=== PATIENT | female | born 1980 | race Caucasian/White ===

== ENCOUNTER 2021-09-30 11:42 | Emergency (ER) | payer OTHER ==
[~2021-09-30] VITALS: Ht 170.2 cm; Wt 66.5 kg
[2021-09-30] MEDS ORDERED: IOHEXOL 300 MG/ML 75 ML VIAL. IV ONE (12:30)
[2021-09-30] MEDS ORDERED: ONDANSETRON PF 4 MG/2 ML VIAL. IVP ONE (12:30)
--- NOTE | 2021-09-30 12:33 | PHYS DOC ---
Past History Past Surgical History: , Other Additional Past Surgical Histo: hand surgery Alcohol Use: Sober Additional Alcohol Information: heavy drinker until last months; states she was drinking glasses of wine nightly until then Social History Narrative: is using CBD oil General Adult EDM: Chief Complaint: ABDOMINAL PAIN HPI: HPI: Patient is a 41-year-old female coming in for left sided abdominal pain that started radiating to the left flank. Says the pain is dull and achy but occasionally sharp. No change with movement or positioning. Patient states it has been going on for about 8 months. Has been seen by her primary care and by GI, Propagated a colonoscopy a few months ago that was normal. She has a follow-up appointment in 1 month for further evaluation. Patient denies any hematuria, dysuria, vaginal bleeding or discharge. States that today he started having some nausea, but denies vomiting. Last p.o. intake about 4 hours prior to evaluation. Patient states that she has a history of constipation and takes probiotics and stool softeners and has been having normal bowel movement without straining. Patient moved to [place] from [place] about 6 months ago. Has a past medical history of bipolar disorder but does not take medications for it. History of 2 C-sections. No known food allergies. No significant family history. Review of Systems: Review of Systems: All other systems within normal limits except for as noted in the HPI Allergies: Allergies: Allergies Coded Allergies Type Severity Reaction Last Updated Verified No Known Drug Allergies 09/30/21 No Physical Exam: PE: Constitutional: Well developed, well nourished, no acute distress, non-toxic ap pearance. [] HENT: Normocephalic, atraumatic, bilateral external ears normal, nose normal. [] Eyes: PERRLA, conjunctiva normal, no discharge. [] Neck: No rigidity, supple, no stridor. [] Cardiovascular: Regular rate and rhythm, brisk cap refill [] Lungs & Thorax: Non labored symmetric respirations, no tachypnea or respiratory distress [] Abdomen: Soft, nondistended, left lower quadrant tender. Skin: Warm, dry, no erythema, no rash. [] Back: Unremarkable, no step-off or deformity Extremities: No deformities, range of motion grossly intact, no lower extremity edema [] Neurologic: Alert and oriented X 3, no focal deficits noted. [] Psychologic: Affect normal, judgement normal, mood normal. [] Current Patient Data: Labs: Laboratory Tests Test 09/30/21 12:20 POC Urine HCG, Qualitative hcg negative (Negative) Vital Signs: Vital Signs Date Time Temp Pulse Resp B/P (MAP) Pulse Ox O2 Delivery O2 Flow Rate FiO2 09/30/21 11:52 98.2 71 18 115/58 (77) 100 Room Air EKG: EKG: [] Radiology/Procedures: Radiology/Procedures: [address] [address] IMAGING REPORT Signed PATIENT: KUSH SALAZAR ACCOUNT: [id number] : 1980 LOCATION: ER AGE: 41 SEX: F EXAM STATUS: REG ER ORD. PHYSICIAN: BETH TORO MD REASON: Left flank pain PROCEDURE: CT ABD PELV W/ IV CONTRST ONLY CT abdomen pelvis with contrast dated 09/30/2021. COMPARISON: None. INDICATION: Left flank pain. TECHNIQUE: Contiguous axial imaging the M pelvis performed following the intravenous administration of 75 cc Isovue-370. One or more of the following individualized dose reduction techniques were utilized for this examination: 1. Automated exposure control 2. Adjustment of the mA and/or kV according to patient size 3. Use of iterative reconstruction technique FINDINGS: Limited images of lung bases are clear. Heart size within normal limits. No pleural or pericardial effusion. There are circumscribed low-density foci in the liver, most consistent with cysts. No biliary ductal dilatation. Portal vein is patent. Spleen, gallbladder, pancreas, adrenal glands and kidneys are unremarkable. No hydronephrosis. Unopacified GI tract is normal in caliber and contour. No bowel wall thickening. No inflammatory stranding in the mesentery. No ascites or lymphadenopathy. The appendix is normal in caliber. Abdominal aorta normal in caliber. No free air. Images of pelvis show nondistended urinary bladder. Uterus unremarkable. There is a 2.2 cm cystic focus at the left ovary with small amount of free pelvic fluid. No inguinal or iliac chain lymphadenopathy. Bone windows show no acute findings. IMPRESSION: 1. No acute abnormality of abdomen or pelvis. 2. Small amount of free pelvic fluid, nonspecific. 3. Small cystic focus at the left ovary, corpus luteum cyst versus dominant follicle. Electronically signed by: Billy Muhammad MD (09/30/2021 1:34 PM) [facility] [place]ATED AND SIGNED BY: BILLY MUHAMMAD MD DATE: 09/30/21 1330 CC: BETH TORO MD; PCP,UNKNOWN ~MTH0 0 [] Heart Score: C/O Chest Pain: No Risk Factors: Risk Factors: DM, Current or recent (<one month) smoker, HTN, HLP, family history of CAD, obesity. Risk Scores: Score 0 - 3: 2.5% MACE over next 6 weeks - Discharge Home Score 4 - 6: 20.3% MACE over next 6 weeks - Admit for Clinical Observation Score 7 - 10: 72.7% MACE over next 6 weeks - Early Invasive Strategies Course & Med Decision Making: Course & Med Decision Making Pertinent Labs and Imaging studies reviewed. (See chart for details) Patient has no acute findings on CT or and labs. Chest there is a moderate amount of stool in the colon. Patient states that she had felt much better when she did the bowel prep prior to her colonoscopy. Discussed patient may need citrate MiraLAX and following her bowel prep instructions. [] Dragon Disclaimer: Dragon Disclaimer: This electronic medical record was generated, in whole or in part, using a voice recognition dictation system. Departure Departure: Impression: Primary Impression: Left flank pain Disposition: HOME / SELF CARE / HOMELESS Condition: STABLE Referrals: ELOY HIGGINS MD Patient Instructions: Bowel Prep Scripts Ibuprofen (IBUPROFEN) 600 Mg Tablet 600 MG PO PRN Q6-8HRS PRN for PAIN, #30 TAB Prov: BETH TORO MD 09/30/21 BETH TORO MD Sep 30, 2021 12:33
[2021-09-30 12:47] LABS: BACTERIA,URINE 0 /HPF (0-FEW); CLARITY,URINE CLEAR; COLOR,URINE YELLOW; GLUCOSE,URINE NEG (NEG); NITRITE,URINE NEG (NEG); RBC,URINE 0 /HPF (0-2); SQUAMOUS EPITHELIAL CELL,UR OCC /LPF; UROBILINOGEN,URINE 0.2 mg/dL (0.2 mg/dL); WBC,URINE 0 /HPF (0-4)
[2021-09-30 13:10] LABS: BASO % 1 % (0-3); EOS # 0.1 x10^3/uL (0.0-0.7); EOS % 2 % (0-3); HEMATOCRIT 41.7 % (36.0-47.0); LYMPH # 1.4 x10^3/uL (1.0-4.8); LYMPH % 23 % (24-48); MEAN CORPUSCULAR HEMOGLOBIN 30 pg (25-35); MEAN CORPUSCULAR HGB CONC 34 g/dL (31-37); MEAN CORPUSCULAR VOLUME 89 fL (79-100); MONO # 0.4 x10^3/uL (0.0-1.1); MONO % 6 % (0-9); NEUT # 4.3 x10^3uL (1.8-7.7); NEUT % 69 % (31-73); PLATELET COUNT 205 x10^3/uL (140-400); RED BLOOD COUNT 4.71 x10^6/uL (3.50-5.40); RED CELL DISTRIBUTION WIDTH 12.4 % (11.5-14.5); WHITE BLOOD COUNT 6.3 x10^3/uL (4.0-11.0)
[2021-09-30 13:19] LABS: CALCIUM 8.6 mg/dL (8.5-10.1); CREATININE 0.7 mg/dL (0.6-1.0); GFR 93.2
[2021-09-30 13:24] LABS: ALBUMIN 3.7 g/dL (3.4-5.0); ALBUMIN/GLOBULIN RATIO 1.1 (1.0-1.7); TOTAL BILIRUBIN 0.2 mg/dL (0.2-1.0); TOTAL PROTEIN 7.1 g/dL (6.4-8.2)
--- NOTE | 2021-09-30 13:36 | RAD ---
CT abdomen pelvis with contrast dated 09/30/2021. COMPARISON: None. INDICATION: Left flank pain. TECHNIQUE: Contiguous axial imaging the M pelvis performed following the intravenous administration of 75 cc Iso alyson-370. One or more of the following individualized dose reduction techniques were utilized for this examinat ion: 1. Automated exposure control 2. Adjustment of the mA and/or kV according to patient size 3. Use of iterative reconstruction technique FINDINGS: Limited images of lung bases are clear. Heart size within normal limits. No pleural or pericardial ef fusion. There are circumscribed low-density foci in the liver, most consistent with cysts. No biliary ductal dilatation. Portal vein is patent. Spleen, gallbladder, pancreas, adrenal glands and kidneys are unre markable. No hydronephrosis. Unopacified GI tract is normal in caliber and contour. No bowel wall thickening. No inflammatory stra nding in the mesentery. No ascites or lymphadenopathy. The appendix is normal in caliber. Abdominal a jani normal in caliber. No free air. Images of pelvis show nondistended urinary bladder. Uterus unremarkable. There is a 2.2 cm cystic foc us at the left ovary with small amount of free pelvic fluid. No inguinal or iliac chain lymphadenopat hy. Bone windows show no acute findings. IMPRESSION: 1. No acute abnormality of abdomen or pelvis. 2. Small amount of free pelvic fluid, nonspecific. 3. Small cystic focus at the left ovary, corpus luteum cyst versus dominant follicle. Electronically signed by: Billy Muhammad MD (09/30/2021 1:34 PM) [facility]
[2021-09-30] MEDS ORDERED: IBUP600T16 PO (13:55)
[2021-09-30 14:46] VITALS: BP 104/56
== END 2021-09-30 14:45 | disposition home or self-care (01) ==
LOC: ER 11:42
DX: R10.32 Left lower quadrant pain (principal); Z98.890 Other specified postprocedural states
CPT/HCPCS: 36415; 74177; 80053; 81001; 81025; 83690; 85025; 96374; 99285; J2405; Q9967